=== PATIENT | male | born 1950 | race Two or more races ===

== ENCOUNTER 2017-01-20 01:16 | Inpatient (IN) | payer MEDICARE, OTHER ==
[~2017-01-20] VITALS: Ht 180.3 cm; Wt 92.1 kg
[2017-01-20 03:50] VITALS: BP 159/83
[2017-01-20 04:00] VITALS: BP 159/83
[2017-01-20] MEDS ORDERED: BENA40TA2 PO (04:28)
[2017-01-20] MEDS ORDERED: TRAM50TA2 PO (04:28)
[2017-01-20] MEDS ORDERED: FLUO20CA36 PO ×2 (04:28)
[2017-01-20] MEDS ORDERED: CLON0.5T PO (04:28)
[2017-01-20] MEDS ORDERED: ASPI81TA2 PO (04:28)
[2017-01-20] MEDS ORDERED: MAG30ORA GT (04:28)
[2017-01-20] MEDS ORDERED: ONDANSETRON HCL/PF 4 MG/2 ML VIAL IVP PRN (05:30)
[2017-01-20] MEDS ORDERED: MAGNESIUM HYDROXIDE 30 ML UDC PO PRN (05:30)
[2017-01-20] MEDS ORDERED: Z GUARD REMEDY 2 OZ OINT TP PRN (05:30)
[2017-01-20] MEDS ORDERED: ZOLPIDEM TARTRATE 5 MG TABLET PO PRN (05:30)
[2017-01-20] MEDS ORDERED: HYDROCODONE/APAP 5/325MG 1 EACH TABLET PO PRN (05:30)
[2017-01-20] MEDS ORDERED: MAG HYDROX/AL HYDROX/SIMETH 30 ML UDC PO PRN (05:30)
[2017-01-20] MEDS ORDERED: ENOXAPARIN SODIUM 40 MG/0.4 ML DISP.SYRIN SQ SCH (05:30)
[2017-01-20] MEDS ORDERED: ACETAMINOPHEN 325 MG TABLET PO PRN (05:30)
[2017-01-20] MEDS ORDERED: ENOXAPARIN SODIUM 40 MG/0.4 ML DISP.SYRIN SQ ONE (05:37)
[2017-01-20] MEDS: IV NS 0.9% 1,000 ML IV PRN ×2 (05:49→17:57)
[2017-01-20 07:01] LABS: CREATININE, URINE < 13.0 MG/DL (30.0-125.0); URINE SODIUM, RANDOM 8 mmol/l (40-220)
[2017-01-20 07:09] LABS: OSMOLALITY,URINE 63 mOS/kg (340-1090)
--- NOTE | 2017-01-20 07:30 | NUR ---
RN NOTES REPORT RECV'D FROM NOC RN. PT RESTING COMFORTABLY. NON LABORED RESP. 2LNC 98%. VOIDS URINAL. LH #20G. MONITORING HYPOKALEMIA AND HYPONATREMIA. SR TELE MONITOR 70'S. BED IN LOW LOCKED POSITION. CALL LIGHT IN REACH. WILL CONT TO MONITOR CLOSELY.
[2017-01-20 08:00] VITALS: BP 131/69
[2017-01-20 08:34] LABS: BASOPHILS % (AUTO) 0.1 % (0.0-2.0); EOSINOPHILS % (AUTO) 0.1 % (0.0-6.0); HEMATOCRIT 34 % (39-51); HEMOGLOBIN 11.1 g/dL (13.5-17.5); LYMPHOCYTES # (AUTO) 1.2 /CMM (0.8-4.8); LYMPHOCYTES % (AUTO) 7.8 % (20.0-44.0); MEAN CORPUSCULAR HEMOGLOBIN 31 PG (26.0-33.0); MEAN CORPUSCULAR HGB CONC 33 g/dl (31.0-36.0); MEAN CORPUSCULAR VOLUME 93 fL (80-96); MONOCYTES # (AUTO) 1.1 /CMM (0.1-1.30); MONOCYTES % (AUTO) 7.2 % (2.0-12.0); NEUTROPHILS # (AUTO) 13.1 /CMM (1.8-8.9); NEUTROPHILS % (AUTO) 84.8 % (43.0-81.0); PLATELET COUNT (AUTO) 225 /CMM (150-450); RDW COEFFICIENT OF VARIATION 14.3 (11.5-15.0); WHITE BLOOD COUNT (AUTO) 15.4 K/uL (4.3-11.0)
[2017-01-20 08:44] LABS: CALCIUM, SERUM 8.4 mg/dL (8.5-10.1)
[2017-01-20 08:56] LABS: ALBUMIN 2.8 g/dL (3.4-5.0); BILIRUBIN,TOTAL 2.7 mg/dL (0.2-1.0); MAGNESIUM 1.5 mg/dL (1.8-2.4); PHOSPHORUS 2.7 mg/dL (2.5-4.9); THYROID STIMULATING HORMONE 1.718 uIU/mL (0.358-3.74)
[2017-01-20] MEDS ORDERED: clonazePAM 0.5 MG TABLET PO SCH (09:00)
[2017-01-20] MEDS: PANTOPRAZOLE 40 MG TABLET.DR PO SCH (09:30)
[2017-01-20] MEDS: BENAZEPRIL HCL 20 MG TABLET PO SCH (09:38)
[2017-01-20] MEDS: TRAMADOL HCL 50 MG TABLET PO SCH ×2 (09:38→17:57)
[2017-01-20] MEDS: FLUOXETINE HCL 20 MG CAPSULE PO SCH ×2 (09:39→17:57)
[2017-01-20] MEDS: ASPIRIN 81 MG TAB.CHEW PO SCH (09:39)
[2017-01-20] MEDS: Magnesium 1GM/D5W 100ML PREMIX 100 ML IV SCH ×2 (11:15→12:57)
--- NOTE | 2017-01-20 11:17 | NUR ---
Social service consult requested by BHARGAVI Michael for possible homelessness. Pt. is a 67 year old male who was admitted to [facility] for Hyponatremia. ABEL and case assistant Estevan met with pt. bedside. Pt. is alert and oriented x4. Pt. was cooperative during the assessment. Pt. states he lives alone at [address], [address] [place] [address]. Pt's emergency contact is his neighbor Lauren . Pt. had several bruises on his arms. SW inquire how with pt. how he got the bruises and pt. stated, "I fell". Pt. stated he is depressed and has been binge drinking lately. Pt. states he drinks approximately 7-8 beers per day and vodka at times. SW to refer pt. for a psychiatrist consult. Pt. receives approximately $900/ month of social security income. Pt. is able to ambulate and does not use a walker or wheelchair. Pt. is currently on oxygen. Pt. informed SW that he is going to lose his apartment soon since he is unable to pay the rent. Pt's rent is currently $700/ month. ABEL and case assistant Estevan discussed long-term facility placement and pt. is willing to go to snf placement. ABEL also discussed sober living options once pt. will be discharge from a snf for future placement. SW informed BHARGAVISchuyler Michael regarding placing a psych. consult for pt.
[2017-01-20] MEDS: POTASSIUM CHLORIDE 20 MEQ TAB.PRT.SR PO SCH ×3 (11:18→13:30)
[2017-01-20 16:00] VITALS: BP 128/81
[2017-01-20] MEDS ORDERED: IPRATROPIUM NEB FS 0.5 MG/2.5 ML AMPUL.NEB NEB PRN (17:00)
[2017-01-20] MEDS ORDERED: ALBUTEROL FS 2.5 MG/3 ML VIAL.NEB NEB PRN (17:00)
--- NOTE | 2017-01-20 18:00 | NUR ---
RN NOTES LATE ENTRY: PT A&OX4. HOB ELEVATED. GOOD APPETITE. NO S/S ETOH W/D. K = 3, MG 1.5 REPLETED BOTH. 2LNC 100% O2 SATS. NO LONGER ON TELE MONITOR STABLE. VERTIGO. CM VISITED TODAY. DR RAMÍREZ PSYCH WANTS TO ATTEMPT TO TRANSFER PT BACK [facility] WHERE HE CHECKED HIMSELF OUT PREMATURELY. RH20G PATENT IV INFUSING NS@100ML/HR. CALL LIGHT IN REACH. BED IN LOW LOCKED POSITION. SIDE RAILS X 3. WILL CONT TO MONITOR AND ENDORSE TO NOC RN.
--- NOTE | 2017-01-20 19:15 | NUR ---
RN INITIAL NOTES RECEIVED PATIENT IN BED, AWAKE AND ALERT X3. PATIENT DENIES ANY PAIN AND DISCOMFORT. PATIENT ON 2LPM OF O2 VIA NC, RESPIRATION IS EVEN AND UNLABORED WITH NO DISTRESS. WITH R HAND PIV, FLUSHED AND PATENT, WITH IVF ORDERED. NOTED PATIENT WITH ABRASIONS ON BUE, LEFT OPEN TO AIR AT THIS TIME, NO ACTIVE BLEEDING NOTED. PATIENT ASSISTED WITH ADLS NEEDED. UNSTEADY GAIT NOTED, FALL PRECAUTION REITERATED FOR THE PATIENT, PATIENT VERBALIZED UNDERSTANDING AND COMPLIANCE. PATIENT TO UTILIZE CALL LIGHT FOR NEEDS, BED ALARM IN PLACE. SAFETY AND COMFORT ENSURED. BED IN LOW AND LOCKED POSITION. CALL LIGHT IN REACH. WILL MONITOR.
[2017-01-20 20:00] VITALS: BP 117/60
[2017-01-20] MEDS: DIAZEPAM 5 MG TABLET PO PRN (21:27)
--- NOTE | 2017-01-20 21:30 | NUR ---
RN NOTES PATIENT REQUESTED FOR HIS VALIUM PRN, PATIENT IS FEELING ANXIOUS AT THIS TIME. PRN MEDICATION ADMINISTERED ORDERED. PM CARE RENDERED FOR THE PATIENT. WOUND CARE RENDERED FOR NOTED ABRASIONS ON PATIENT'S BUE, KEPT CLEAN AND DRY, SCANT AMOUNT OF BLEEDING NOTED. WILL MONITOR FOR MEDICATION EFFECTIVENESS.
--- NOTE | 2017-01-21 00:21 | NUR ---
RN NOTES PATIENT SLEEPING COMFORTABLY, EASILY AROUSABLE WITH VERBAL AND TACTILE STIMULI. NO DISTRESS NOTED. CALM AND COOPERATIVE AT THIS TIME.
[2017-01-21] MEDS: IV NS 0.9% 1,000 ML IV PRN (03:29)
[2017-01-21] MEDS: DIAZEPAM 5 MG TABLET PO PRN ×3 (03:29→17:47)
[2017-01-21 04:00] VITALS: BP 125/77
--- NOTE | 2017-01-21 06:42 | NUR ---
RN CLOSING NOTES PATIENT WITH NO ACUTE CHANGE IN CONDITION OBSERVED OVERNIGHT. PATIENT STABLE. NO DISTRESS AND NO C/O PAIN AND DISCOMFORT. IVF ORDERED. AM LABS DRAWN. PATIENT KEPT CLEAN AND DRY. NEEDS ANTICIPATED AND MET. SAFETY AND COMFORT ENSURED. BED IN LOW AND LOCKED POSITION. CALL LIGHT IN REACH. WILL ENDORSE ACCORDINGLY FOR CONTINUITY OF CARE.
--- NOTE | 2017-01-21 07:15 | NUR ---
RN NOTES PT A&OX4. HOB ELEVATED. NO S/S ETOH W/D. K = 3, MG 1.5 REPLETED BOTH. TODAY'S LABS PENDING. 2LNC 100% O2 SATS. RH20G PATENT IV INFUSING NS@100ML/HR. CALL LIGHT IN REACH. BED IN LOW LOCKED POSITION. SIDE RAILS X 3. WILL CONT TO MONITOR CLOSELY.
[2017-01-21 07:20] LABS: BASOPHILS % (AUTO) 0.3 % (0.0-2.0); EOSINOPHILS # (AUTO) 0.1 /CMM (0.0-0.7); HEMATOCRIT 31 % (39-51); HEMOGLOBIN 10.4 g/dL (13.5-17.5); LYMPHOCYTES # (AUTO) 1.3 /CMM (0.8-4.8); MEAN CORPUSCULAR HEMOGLOBIN 31 PG (26.0-33.0); MEAN CORPUSCULAR HGB CONC 33 g/dl (31.0-36.0); MEAN CORPUSCULAR VOLUME 94 fL (80-96); MONOCYTES # (AUTO) 0.6 /CMM (0.1-1.30); MONOCYTES % (AUTO) 7.9 % (2.0-12.0); NEUTROPHILS # (AUTO) 5.7 /CMM (1.8-8.9); NEUTROPHILS % (AUTO) 73.8 % (43.0-81.0); PLATELET COUNT (AUTO) 198 /CMM (150-450); RDW COEFFICIENT OF VARIATION 14.6 (11.5-15.0); RED BLOOD CELL COUNT(AUTO) 3.34 MIL/uL (4.5-6.0); WHITE BLOOD COUNT (AUTO) 7.8 K/uL (4.3-11.0)
[2017-01-21 07:36] LABS: CALCIUM, SERUM 8.3 mg/dL (8.5-10.1); CREATININE 1.2 mg/dL (0.6-1.3); PHOSPHORUS 2.5 mg/dL (2.5-4.9); POTASSIUM 3.1 mmol/L (3.5-5.1); THYROID STIMULATING HORMONE 3.304 uIU/mL (0.358-3.74)
[2017-01-21 08:00] VITALS: BP 147/83
[2017-01-21] MEDS: PANTOPRAZOLE 40 MG TABLET.DR PO SCH (08:42)
[2017-01-21] MEDS: FLUOXETINE HCL 20 MG CAPSULE PO SCH ×2 (08:42→17:45)
[2017-01-21] MEDS: TRAMADOL HCL 50 MG TABLET PO SCH ×2 (08:42→17:45)
[2017-01-21] MEDS: ASPIRIN 81 MG TAB.CHEW PO SCH (08:42)
[2017-01-21] MEDS: BENAZEPRIL HCL 20 MG TABLET PO SCH (08:43)
[2017-01-21] MEDS: ENOXAPARIN SODIUM 40 MG/0.4 ML DISP.SYRIN SQ SCH (08:44)
[2017-01-21] MEDS: POTASSIUM CHLORIDE 20 MEQ TAB.PRT.SR PO SCH ×2 (10:41→11:34)
[2017-01-21] MEDS: Potassium Chloride 40 MEQ in IV NS 0.9% 1,000 ML IV PRN (14:23)
[2017-01-21 16:00] VITALS: BP 156/75
--- NOTE | 2017-01-21 17:55 | NUR ---
RN CLOSING NOTE PT A&OX4. HOB ELEVATED. NO S/S ETOH W/D. K = 3, MG 1.5 REPLETED BOTH. 2LNC 100% O2 SATS. RH20G PATENT IV INFUSING NS+40MEQ K+@100ML/HR. CALL LIGHT IN REACH. BED IN LOW LOCKED POSITION. SIDE RAILS X 3. WILL CONT TO MONITOR CLOSELY.
--- NOTE | 2017-01-21 19:30 | NUR ---
RN INITIAL NOTE RECEIVED PT IN NO ACUTE DISTRESS IN BED. PT IS A/O X 3 AND ABLE TO MAKE NEEDS KNOWN. PT IS ON O2 VIA NC @ 2 LPM AND TOLERATING WELL. PT DENIES ANY SOB, DIFFICULTY BREATHING OR PAIN AT THIS TIME. PT HAS R HAND 2O G THAT IS CLEAN DRY INTACT AND PATENT WITH NS + 40 MEQ K @ 100ML/HR. BED IN LOW LOCK POSITION WITH RAILS UP X 2. CALL LIGHT WITHIN REACH AND ALL SAFETY MEASURES ENSURED AND CARRIED OUT. WILL CONTINUE TO MONITOR FOR ANY CHANGES IN CONDITION.
[2017-01-21 20:00] VITALS: BP 158/86
[2017-01-22] MEDS: DIAZEPAM 5 MG TABLET PO PRN ×3 (00:52→17:35)
[2017-01-22 04:00] VITALS: BP 162/76
--- NOTE | 2017-01-22 06:29 | NUR ---
RN CLOSING NOTE PT REMAINS IN NO ACUTE DISTRESS IN BED. PT DID NOT HAVE ANY SIGNIFICANT CHANGE IN CONDITION DURING SHIFT. ALL NEEDS MET ALL ORDERS CARRIED OUT. WILL ENDORSE CARE TO AM RN FOR CONTINUITY OF CARE.
[2017-01-22 06:39] LABS: BASOPHILS # (AUTO) 0.1 /CMM (0.0-0.2); EOSINOPHILS # (AUTO) 0.1 /CMM (0.0-0.7); EOSINOPHILS % (AUTO) 1.6 % (0.0-6.0); HEMATOCRIT 30 % (39-51); HEMOGLOBIN 10.1 g/dL (13.5-17.5); LYMPHOCYTES # (AUTO) 1.2 /CMM (0.8-4.8); LYMPHOCYTES % (AUTO) 21.1 % (20.0-44.0); MEAN CORPUSCULAR HEMOGLOBIN 31 PG (26.0-33.0); MEAN CORPUSCULAR HGB CONC 33 g/dl (31.0-36.0); MEAN CORPUSCULAR VOLUME 94 fL (80-96); MONOCYTES # (AUTO) 0.5 /CMM (0.1-1.30); MONOCYTES % (AUTO) 7.7 % (2.0-12.0); NEUTROPHILS % (AUTO) 68.6 % (43.0-81.0); PLATELET COUNT (AUTO) 209 /CMM (150-450); RDW COEFFICIENT OF VARIATION 14.9 (11.5-15.0); RED BLOOD CELL COUNT(AUTO) 3.22 MIL/uL (4.5-6.0); WHITE BLOOD COUNT (AUTO) 5.9 K/uL (4.3-11.0)
[2017-01-22 06:51] LABS: URINE SODIUM, RANDOM 26 mmol/l (40-220)
[2017-01-22 07:03] LABS: THYROID STIMULATING HORMONE 4.092 uIU/mL (0.358-3.74)
[2017-01-22 07:04] LABS: CALCIUM, SERUM 8.6 mg/dL (8.5-10.1); CREATININE 1.2 mg/dL (0.6-1.3); MAGNESIUM 1.7 mg/dL (1.8-2.4); PHOSPHORUS 2.8 mg/dL (2.5-4.9); POTASSIUM 3.6 mmol/L (3.5-5.1)
--- NOTE | 2017-01-22 07:07 | NUR ---
MS RN INITIAL NOTE RECEIVED PT AWAKE IN BED IN NO ACUTE SIGNS OF DISTRESS. PT IS A/O X 3 AND ABLE TO MAKE NEEDS KNOWN, NO C/O PAIN OR DISCOMFORTS VOICED AT THIS TIME. ON O2 VIA NC @ 2 LPM, TOLERATING WELL WITH NO SOB NOTED. PT HAS R HAND 2O G THAT IS CLEAN, INTACT AND PATENT WITH NS + 40 MEQ K @ 100ML/HR INFUSING. BED IN LOW LOCK POSITION WITH RAILS UP X 2. CALL LIGHT WITHIN REACH. ALL SAFETY MEASURES IN PLACED. WILL CONTINUE TO MONITOR PT ACCORDINGLY.
[2017-01-22 07:39] LABS: OSMOLALITY,URINE 165 mOS/kg (340-1090)
[2017-01-22 08:00] VITALS: BP 156/75
[2017-01-22] MEDS: ASPIRIN 81 MG TAB.CHEW PO SCH (08:30)
[2017-01-22] MEDS: PANTOPRAZOLE 40 MG TABLET.DR PO SCH (08:30)
[2017-01-22] MEDS: FLUOXETINE HCL 20 MG CAPSULE PO SCH ×2 (08:30→17:37)
--- NOTE | 2017-01-22 08:30 | NUR ---
WOUND CARE CONSULT: PT PRESENTS WITH ABRASIONS TO LEFT ARM AND MULTIPLE DRY ABRASIONS AND BRUISES, PRESENT ON ADMISSION. PT IS AMBULATORY AND APPEARS TO BE CONTINENT. ALL SKIN PROTECTION AND WOUND RECOMMENDATIONS DISCUSSED WITH NURSING STAFF. CURRENT LOIS SCORE IS 17. WILL SEE PRN. HOLLEY IN AGREEMENT WITH PLAN OF CARE. Addendum: 01/22/17 at 0832 by JARED ZAVALA WNDNU Amended: Links added.
[2017-01-22] MEDS: TRAMADOL HCL 50 MG TABLET PO SCH ×2 (08:31→17:33)
[2017-01-22] MEDS: BENAZEPRIL HCL 20 MG TABLET PO SCH (08:32)
[2017-01-22] MEDS: ENOXAPARIN SODIUM 40 MG/0.4 ML DISP.SYRIN SQ SCH (08:34)
[2017-01-22] MEDS: Magnesium 1GM/D5W 100ML PREMIX 100 ML IV SCH ×2 (11:43→12:30)
[2017-01-22] MEDS: Potassium Chloride 40 MEQ in IV NS 0.9% 1,000 ML IV PRN (12:44)
--- NOTE | 2017-01-22 14:05 | NUR ---
ABEL and casework manager Estevan met with pt. to discuss discharge plan. senior living facility and alcohol treatment programs were offered to pt, however pt. declined stating he wants to go back home. Pt. is concerned about losing his storage and apartment. Pt's sister Fatmata was contacted per pt's request, however SW did not hear back from her. Pt. will require transportation to his home located at [address], [address], [place] [address].
--- NOTE | 2017-01-22 18:52 | NUR ---
MS RN CLOSING NOTES PT RESTING IN BED WATCHING TV AT THIS TIME. A/O X 3 AND VERBALLY RESPONSIVE. ALL NEEDS ATTENDED WELL. ON O2 VIA NC @ 2 LPM, TOLERATING WELL WITH NO SOB NOTED, PT KEEPS REMOVING O2 VIA N/C ON AND OFF, STATING HE'S NOT HAVING SOB. PT HAS IV ACCESS ON R HAND G# 2O, INTACT AND PATENT WITH NS + 40 MEQ K @ 100ML/HR INFUSING, NO SIGNS OF INFILTRATION NOTED. KEPT BED IN LOW LOCK POSITION WITH RAILS UP X 2. CALL LIGHT WITHIN REACH. ALL SAFETY MEASURES MAINTAINED. WILL ENDORSED TO JAVA TECH LEAD NURSE FOR RO.
[2017-01-22 20:00] VITALS: BP 173/90
--- NOTE | 2017-01-22 20:17 | NUR ---
MS/RN OPENING NOTES PATIENT IN BED, AWAKE, ALERT X3. ABLE TO VERBALIZE NEEDS. BLOOD PRESSURE ELEVATED AT 175/88. REPORTED PAIN IN BACK OF 5/10 WILL GIVE PRN MED NORCO 5-32G MG PO. WILL CONTINUE TO MONITOR, CALL LIGHTS WITHIN REACH.
--- NOTE | 2017-01-22 22:30 | NUR ---
MS/RN NOTES DR. JUAN BETANCOURT WAS INFORMED REGARDING ELEVATED B/P OF PATIENT AT 172/83 THAT WAS RECHECKED AND GIVEN PAIN MED BUT STILL B/P ELEVATED, NO ORDER FOR B/P MED AT THIS TIME AND WILL RECHECK AND CONTINUE MONITORING.
[2017-01-23 04:00] VITALS: BP 155/82
[2017-01-23 04:13] VITALS: BP 155/82
--- NOTE | 2017-01-23 06:30 | NUR ---
MS/RN CLOSING NOTES PATIENT IN BED, RESTING COMFORTABLY IN BED. RESPIRATIONS EVEN AND UN LABORED. PATIENT OBSERVED AND REPORTED NO PAIN AND NO PAIN. WILL ENDORSE TO AM RN REGARDING RO.
--- NOTE | 2017-01-23 07:15 | NUR ---
MS RN NOTE: RECEIVED PT AWAKE IN BED, AOX3, DENIES PAIN. ON 2LPM O2 VIA NC, RESPIRATIONS EVEN AND UNLABORED WITH NO SOB NOTED. R HAND 2O G PATENT AND INTACT WITH NS + 40 MEQ K RUNNING @ 100ML/HR. L ARM DRESSING DRY AND INTACT. BED LOW, LOCKED, X2 SIDE RAILS UP AND CALL LIGHT WITHIN REACH. WILL CONT TO MONITOR.
[2017-01-23 07:41] LABS: BASOPHILS # (AUTO) 0.1 /CMM (0.0-0.2); BASOPHILS % (AUTO) 1.2 % (0.0-2.0); EOSINOPHILS # (AUTO) 0.1 /CMM (0.0-0.7); EOSINOPHILS % (AUTO) 2.5 % (0.0-6.0); HEMATOCRIT 30 % (39-51); HEMOGLOBIN 10.1 g/dL (13.5-17.5); LYMPHOCYTES # (AUTO) 1.4 /CMM (0.8-4.8); LYMPHOCYTES % (AUTO) 26.8 % (20.0-44.0); MEAN CORPUSCULAR HEMOGLOBIN 32 PG (26.0-33.0); MEAN CORPUSCULAR HGB CONC 33 g/dl (31.0-36.0); MEAN CORPUSCULAR VOLUME 94 fL (80-96); MONOCYTES # (AUTO) 0.7 /CMM (0.1-1.30); MONOCYTES % (AUTO) 12.2 % (2.0-12.0); NEUTROPHILS # (AUTO) 3.1 /CMM (1.8-8.9); NEUTROPHILS % (AUTO) 57.3 % (43.0-81.0); PLATELET COUNT (AUTO) 205 /CMM (150-450); RDW COEFFICIENT OF VARIATION 14.6 (11.5-15.0); WHITE BLOOD COUNT (AUTO) 5.4 K/uL (4.3-11.0)
[2017-01-23 08:00] VITALS: BP_SYST 169; BP_SYST 191; BP_SYST 93; BP_DIAS 102; BP_DIAS 45; BP_DIAS 92
[2017-01-23 08:05] LABS: CALCIUM, SERUM 8.3 mg/dL (8.5-10.1); CREATININE 1.2 mg/dL (0.6-1.3); MAGNESIUM 1.8 mg/dL (1.8-2.4); POTASSIUM 3.6 mmol/L (3.5-5.1)
[2017-01-23] MEDS: PANTOPRAZOLE 40 MG TABLET.DR PO SCH (09:24)
[2017-01-23] MEDS: ASPIRIN 81 MG TAB.CHEW PO SCH (09:24)
[2017-01-23] MEDS: FLUOXETINE HCL 20 MG CAPSULE PO SCH ×2 (09:24→17:01)
[2017-01-23] MEDS: TRAMADOL HCL 50 MG TABLET PO SCH ×2 (09:24→17:01)
[2017-01-23] MEDS: ENOXAPARIN SODIUM 40 MG/0.4 ML DISP.SYRIN SQ SCH (09:25)
[2017-01-23] MEDS: DIAZEPAM 5 MG TABLET PO PRN ×2 (09:27→17:01)
[2017-01-23] MEDS: BENAZEPRIL HCL 20 MG TABLET PO SCH (09:28)
[2017-01-23 16:00] VITALS: BP_SYST 154; BP_SYST 195; BP_DIAS 108; BP_DIAS 114
--- NOTE | 2017-01-23 19:00 | NUR ---
MS RN NOTE: PT D/C BACK HOME IN STABLE CONDITION. D/C PAPERWORK SIGNED, BELONGINGS RETURNED, PICTURES TAKEN. ORDERS CARRIED OUT. PT LEFT THE UNIT AT 1900 VIA W/C WITH MELANIE.
== END 2017-01-23 18:59 | disposition home or self-care (01) | DRG 641 ==
LOC: TELE1 03:46 → MEDSG1 09:06
DX: E86.1 Hypovolemia (principal); E44.0 Moderate protein-calorie malnutrition; K74.60 Unspecified cirrhosis of liver; E87.1 Hypo-osmolality and hyponatremia; D72.829 Elevated white blood cell count, unspecified; I10 Essential (primary) hypertension; S50.311A Abrasion of right elbow, initial encounter; F10.239 Alcohol dependence with withdrawal, unspecified; E83.42 Hypomagnesemia; F32.9 Major depressive disorder, single episode, unspecified; F41.9 Anxiety disorder, unspecified; Y90.9 Presence of alcohol in blood, level not specified; F17.200 Nicotine dependence, unspecified, uncomplicated; F14.21 Cocaine dependence, in remission; Z79.899 Other long term (current) drug therapy; Z81.8 Family history of other mental and behavioral disorders; Z79.82 Long term (current) use of aspirin; E87.6 Hypokalemia; E83.51 Hypocalcemia; S50.312A Abrasion of left elbow, initial encounter; X58.XXXA Exposure to other specified factors, initial encounter; Y92.009 Unspecified place in unspecified non-institutional (private) residence as the place of occurrence of the external cause; S30.1XXA Contusion of abdominal wall, initial encounter
CPT/HCPCS: 36415; 80048-TC; 80053-TC; 80061-TC; 80305; 82570-TC; 83735-TC; 83935-TC; 84100-TC; 84300-TC; 84443-TC; 84550-TC; 85025-TC; 97116-TC; 97530-TC; A6402; A6403; J1650; J3475; J3480; J7030; Z7610